=== PATIENT | male | born 1960 | race Caucasian/White ===

== ENCOUNTER → 2021-11-24 | Outpatient (CLI) | payer OTHER ==
--- NOTE | 2021-11-24 10:50 | Diagnostic Imaging Report ---
INDICATION: Left foot pain. TIME OF EXAM: 9:54 AM FINDINGS: 3 views of the left foot were obtained. Metatarsals are intact. Phalanges are intact. Midfoot and hindfoot are unremarkable. No fractures are identified. IMPRESSION: No acute bony abnormality is detected. Dictated by: Dictated on workstation # [id number]
== END ==
LOC: ORTHO 09:36
PROVIDERS: ATTEND Orthopaedic Surgery
DX: M79.672 Pain in left foot (principal)
CPT/HCPCS: 73630; G0463; 99203